=== PATIENT | female | born 1980 | race Two or more races ===

== ENCOUNTER 2016-11-09 23:21 | Emergency (ER) | payer BC ==
[~2016-11-09] VITALS: Ht 157.5 cm; Wt 56.7 kg
[2016-11-09] MEDS ORDERED: NKM (23:33)
[2016-11-09] MEDS ORDERED: Tetanus/Diptheria/Pertussis Vaccine 0.5ml Syr IM ONE (23:45)
[2016-11-10] MEDS ORDERED: KEFLEX500 MG ORAL (00:02)
--- NOTE | 2016-11-10 00:03 | Emergency Room Report ---
History of Present Illness General Chief Complaint: Laceration Source: Patient Present Illness HPI Is a 36-year-old female who is right-hand dominant. She presents with a laceration to her right index finger. She was preparing her camping supplies for tomorrow. She was using a [employer] knife to cut the tape. It folded up on her finger. She sustained a 2 cm laceration to be right index finger. Mild pain. No active bleeding. Denies any other complaint. Allergies: Coded Allergies: No Known Allergies (Unverified , 11/09/16) Patient History Past Medical History: none, see triage record, old chart reviewed Past Surgical History: none Pertinent Family History: none Social History: Denies: smoking Last Menstrual Period: 10/23/16 Now: No Immunizations: other Reviewed Nursing Documentation: PMH: Agreed, PSxH: Agreed Nursing Documentation-PMH Past Medical History: No Stated History Review of Systems Eye: Denies: eye pain, blurred vision ENT: Denies: ear pain, nose congestion, throat swelling Respiratory: Denies: cough, shortness of breath Cardiovascular: Denies: chest pain, palpitations Gastrointestinal: Denies: abdominal pain, diarrhea, nausea, vomiting Musculoskeletal: Denies: back pain, joint pain Skin: Denies: rash Neurological: Denies: headache, numbness Endocrine: Denies: increased thirst, increased urine Hematologic/Lymphatic: Denies: easy bruising All Other Systems: negative except mentioned in HPI Physical Exam Vital Signs Date Time Temp Pulse Resp B/P (MAP) Pulse Ox O2 Delivery O2 Flow Rate FiO2 11/09/16 23:28 98.2 76 16 123/79 100 Room Air Sp02 EP Interpretation: reviewed, normal General Appearance: well appearing, no apparent distress, alert Head: normocephalic, atraumatic Eyes: bilateral eye PERRL, bilateral eye EOMI ENT: hearing grossly normal, normal pharynx Neck: full range of motion, supple, no meningismus Respiratory: chest non-tender, lungs clear, normal breath sounds Cardiovascular #1: regular rate, rhythm, no murmur Gastrointestinal: normal bowel sounds, non tender, no mass, no organomegaly, no bruit, non-distended Musculoskeletal: back normal, gait/station normal, normal range of motion, other - Right index finger: 2 cm laceration to the proximal phalanx. No foreign body. Full range of motion. No tendon laceration. Sensation normal. Psychiatric: mood/affect normal Skin: warm/dry Procedures Laceration/Wound Repair Laceration/Wound Repair : Consent: Verbal Wound Location: upper extremity Wound's Depth, Shape: superficial, linear Wound Length (cm): 2 Wound Explored: clean Irrigated w/ Saline (ccs): 1000 Betadine Prep?: Yes Anesthesia: 1% Lidocaine Volume Anesthetic (ccs): 2 Wound Repaired With: sutures Suture Size/Type: 5:0, nylon Number of Sutures: 3 Patient Tolerated: Well Complications: None Medical Decision Making Diagnostic Impression: Primary Impression: Laceration of right index finger w/o foreign body w/o damage to nail Qualified Codes: S61.210A - Laceration without foreign body of right index finger without damage to nail, initial encounter ER Course Patient with laceration to the finger. Low risk for infection. We'll discharge home. Because she's going camping, I will put her on antibiotics. Last Vital Signs Date Time Temp Pulse Resp B/P (MAP) Pulse Ox O2 Delivery O2 Flow Rate FiO2 11/09/16 23:28 98.2 76 16 123/79 100 Room Air Status: improved Disposition: HOME, SELF-CARE Condition: Stable Scripts Cephalexin* (KEFLEX*) 500 Mg Capsule 500 MG ORAL TID, #21 CAP 0 Refills Prov: RONNA CANADA M.D. 11/10/16 Patient Instructions: Laceration Care, Adult Additional Instructions: Keep wound clean. Followup with your Dr. in 7-10 days for suture removal. Return if symptom worsen. RONAN CANADA M.D. Nov 10, 2016 00:02
[2016-11-10 00:15] VITALS: BP 121/69
[2016-11-10 00:16] VITALS: BP 123/79
== END 2016-11-10 00:19 | disposition home or self-care (01) ==
LOC: EMR 23:55
DX: S61.210A Laceration without foreign body of right index finger without damage to nail, initial encounter (principal); W26.0XXA Contact with knife, initial encounter; Y92.89 Other specified places as the place of occurrence of the external cause; Z23 Encounter for immunization
CPT/HCPCS: 90471; 90715; 99284